=== PATIENT | male | born 1940 | race Caucasian/White ===

== ENCOUNTER → 2017-01-28 | Outpatient (CLI) | payer OTHER ==
[~2017-01-28] MED LIST: REGADENOSON 0.4 MG/5 ML SYRINGE ONE
== END | disposition home or self-care (01) ==
LOC: CFH 12:24
PROVIDERS: ATTEND Internal Medicine Cardiovascular Disease
DX: I08.2 Rheumatic disorders of both aortic and tricuspid valves (principal); I37.1 Nonrheumatic pulmonary valve insufficiency; I51.89 Other ill-defined heart diseases; I65.23 Occlusion and stenosis of bilateral carotid arteries; I25.2 Old myocardial infarction
CPT/HCPCS: 78452; 93017; 93306; 93880; A9502; J2785

== ENCOUNTER 2017-11-27 17:21 | Inpatient (IN) | payer OTHER ==
[~2017-11-27] VITALS: Ht 182.9 cm; Wt 72.3 kg
[2017-11-27] MEDS ORDERED: SODIUM CHLORIDE 0.9% 1,000 ML IV ONE (17:28)
[2017-11-27] MEDS ORDERED: SODIUM CHLORIDE FLUSH 10ML SYR IVF ONE ×2 (17:30→20:00)
[2017-11-27] MEDS ORDERED: ASPIRIN 81 MG TABLET CHEW PO ONE (17:30)
[2017-11-27] MEDS ORDERED: ASPIRIN 81 MG TABLET CHEW ONE (17:40)
[2017-11-27 18:42] LABS: BASOPHILS # (AUTO) 0.02 x10^3/uL (0-0.1); BASOPHILS % (AUTO) 0 % (0-1); EOSINOPHILS # (AUTO) 0.14 x10^3/uL (0-0.4); EOSINOPHILS % (AUTO) 2 % (1-7); LYMPHOCYTES % (AUTO) 19 % (22-44); MD NO; MEAN CORPUSCULAR HEMOGLOBIN 30.7 pg (27.5-34.5); MEAN CORPUSCULAR HGB CONC 32.4 g/dL (33.2-36.2); MEAN CORPUSCULAR VOLUME 94.8 fL (81-97); MEAN PLATELET VOLUME 8.5 fL (7.4-10.4); MONOCYTES # (AUTO) 0.57 x10^3/uL (0.2-0.8); MONOCYTES % (AUTO) 9 % (2-9); NEUTROPHILS # (AUTO) 4.71 x10^3/uL (1.8-6.8); NEUTROPHILS % (AUTO) 70 % (42-75); PLATELET COUNT 180 x10^3/uL (130-400); RED BLOOD COUNT 4.68 x10^6/uL (4.38-5.82); RED CELL DISTRIBUTION WIDTH 15.7 % (9.4-14.8)
[2017-11-27] MEDS ORDERED: OMNIPAQUE 350 MG/ML, 100ML BOTTLE ONE (18:45)
[2017-11-27 18:52] LABS: INTERNATIONAL NORMALIZED RATIO 1.18 (0.93-1.1); PROTHROMBIN TIME 12.2 Seconds (9.6-11.5)
[2017-11-27] MEDS ORDERED: LEVO25TA4 PO (18:53)
[2017-11-27] MEDS ORDERED: LISI-170 PO (18:53)
[2017-11-27] MEDS ORDERED: TIOT18CA INH (18:53)
[2017-11-27] MEDS ORDERED: ATOR10TA9 PO (18:53)
[2017-11-27 18:54] LABS: ALANINE AMINOTRANSFERASE 61 U/L (12-78); ANION GAP 5 mmol/L (5-15); CALCIUM 8.2 mg/dL (8.5-10.1); CHLORIDE 106 mmol/L (98-107); CREATININE 1.39 mg/dL (0.7-1.3)
[2017-11-27 18:59] LABS: ALKALINE PHOSPHATASE 106 U/L (45-117); BILIRUBIN,TOTAL 0.5 mg/dL (0.2-1.0); TOTAL PROTEIN 6.5 g/dL (6.4-8.2); TROPONIN I 0.027 ng/mL (0.000-0.045)
[2017-11-27] MEDS ORDERED: SODIUM CHLORIDE 0.9%, 500ML IVBOLUS ONE ×2 (19:00→20:00)
[2017-11-27] MEDS ORDERED: PIPERACILLIN/TAZO/PMX 3.375GM 50 ML ONE (19:50)
[2017-11-27] MEDS ORDERED: VANCOMYCIN PER PHARMACY MC PRN (20:00)
[2017-11-27] MEDS ORDERED: PIPERACILLIN/TAZO/PMX 3.375GM 50 ML IV ONE (20:00)
[2017-11-27] MEDS ORDERED: PHARMACOKINETIC CONSULTATION MC ONE (20:00)
[2017-11-27] MEDS ORDERED: VANCOMYCIN 1,400 MG in SODIUM CHLORIDE 0.9% 250 ML IV ONE (20:15)
[2017-11-27 20:57] VITALS: BP 120/77
[2017-11-27] MEDS ORDERED: ONDANSETRON 2MG/ML, 2ML IVPush PRN (22:30)
[2017-11-27] MEDS ORDERED: OXYcodone IR 5MG TABLET PO PRN (22:30)
[2017-11-27] MEDS ORDERED: FUROSEMIDE 20 MG/2 ML IV ONE (22:30)
[2017-11-27] MEDS ORDERED: ALBUTEROL/IPRATROPIUM 2.5MG/0.5MG, 3 ML NPPB SCH (22:30)
[2017-11-27] MEDS ORDERED: hydrALAzine 20 MG/ML, 1ML IVPush PRN (22:30)
[2017-11-27] MEDS ORDERED: POLYETHYLENE GLYCOL 17 GM PACKET PO PRN (22:30)
[2017-11-27] MEDS ORDERED: BISACODYL 10 MG SUPP PR PRN (22:30)
[2017-11-27] MEDS ORDERED: LABETALOL 5MG/ML, 20ML IVPush PRN (22:30)
[2017-11-27] MEDS ORDERED: morphine SULFATE 10 MG/ML, 1ML IVPush PRN (22:30)
[2017-11-27] MEDS ORDERED: ACETAMINOPHEN 325 MG TABLET PO PRN (22:30)
[2017-11-27] MEDS ORDERED: ALBUTEROL/IPRATROPIUM 2.5MG/0.5MG, 3 ML NPPB PRN (23:00)
[2017-11-27] MEDS: methylPREDNISolone SOD SUCC 125 MG/2 ML IVPush SCH (23:20)
[2017-11-27] MEDS: ATORVASTATIN 10 MG TABLET PO SCH (23:20)
[2017-11-27] MEDS: DOXYCYCLINE 100MG TABLET PO SCH (23:21)
[2017-11-27] MEDS: CEFTRIAXONE PMX 2GM/50ML 50 ML IV SCH (23:21)
[2017-11-27] MEDS: NICOTINE 14MG/24 HR PATCH.TD24 TD SCH (23:22)
[2017-11-27 23:27] LABS: FREE T4 (FREE THYROXINE) 0.93 ng/dL (0.76-1.46); THYROID STIMULATING HORMONE 4.88 mIU/L (0.358-3.740)
[2017-11-27] MEDS: HEPARIN 5,000 UNITS/ML, 1ML SQ SCH (23:33)
[2017-11-27 23:41] LABS: HEMOGLOBIN A1C 6.3 % (4.2-6.3)
[2017-11-28 01:58] LABS: MICROSCOPIC NOT IND
[2017-11-28 02:04] LABS: CULTURE INDICATED? NO
[2017-11-28 02:05] VITALS: BP 126/73
[2017-11-28 05:21] LABS: CHLORIDE 107 mmol/L (98-107)
[2017-11-28] MEDS: methylPREDNISolone SOD SUCC 125 MG/2 ML IVPush SCH ×4 (05:23→22:43)
[2017-11-28 05:26] LABS: ALANINE AMINOTRANSFERASE 49 U/L (12-78); ALBUMIN 2.5 g/dL (3.4-5.0); ALKALINE PHOSPHATASE 90 U/L (45-117); ANION GAP 8 mmol/L (5-15); BILIRUBIN,TOTAL 0.3 mg/dL (0.2-1.0); CALCIUM 7.9 mg/dL (8.5-10.1); CREATININE 1.37 mg/dL (0.7-1.3); TOTAL PROTEIN 5.6 g/dL (6.4-8.2); TRIGLYCERIDES 42 mg/dL (50-200)
[2017-11-28 05:27] LABS: CHOL/HDL RATIO 2.7; CHOLESTEROL, TOTAL 96 mg/dL (140-239); HDL CHOL % 36 % (26-37); HDL CHOLESTEROL (DIRECT) 35 mg/dL (40-60); LDL CHOLESTEROL,CALCULATED 53 mg/dL (54-169); LDL/HDL RATIO 1.5 (0.5-3.0); VLDL CHOLESTEROL 8 mg/dL (0-25)
[2017-11-28 05:28] LABS: BASOPHILS # (AUTO) 0.01 x10^3/uL (0-0.1); BASOPHILS % (AUTO) 0 % (0-1); EOSINOPHILS # (AUTO) 0.02 x10^3/uL (0-0.4); EOSINOPHILS % (AUTO) 1 % (1-7); LYMPHOCYTES # (AUTO) 0.54 x10^3/uL (1-3.4); LYMPHOCYTES % (AUTO) 13 % (22-44); MD NO; MEAN CORPUSCULAR HEMOGLOBIN 30.9 pg (27.5-34.5); MEAN CORPUSCULAR HGB CONC 32.9 g/dL (33.2-36.2); MEAN CORPUSCULAR VOLUME 93.9 fL (81-97); MEAN PLATELET VOLUME 8.2 fL (7.4-10.4); MONOCYTES # (AUTO) 0.07 x10^3/uL (0.2-0.8); MONOCYTES % (AUTO) 2 % (2-9); NEUTROPHILS # (AUTO) 3.42 x10^3/uL (1.8-6.8); NEUTROPHILS % (AUTO) 84 % (42-75); PLATELET COUNT 152 x10^3/uL (130-400); RED BLOOD COUNT 4.03 x10^6/uL (4.38-5.82); RED CELL DISTRIBUTION WIDTH 15.6 % (9.4-14.8)
[2017-11-28] MEDS: HEPARIN 5,000 UNITS/ML, 1ML SQ SCH ×3 (05:53→22:43)
[2017-11-28] MEDS ORDERED: IPRATROPIUM 0.5 MG/2.5 ML INHA NPPB SCH (09:00)
[2017-11-28] MEDS ORDERED: LEVOTHYROXINE 25 MCG TABLET PO SCH (09:00)
[2017-11-28] MEDS ORDERED: IPRATROPIUM 0.5 MG/2.5 ML INHA HHN SCH (09:00)
[2017-11-28] MEDS: DOXYCYCLINE 100MG TABLET PO SCH ×2 (09:01→21:08)
[2017-11-28] MEDS: FLUTICASONE/VILANTEROL 200-25MCG/INH INH SCH (09:02)
[2017-11-28] MEDS: SENNA/DOCUSATE TABLET PO SCH (09:02)
[2017-11-28] MEDS: FUROSEMIDE 20 MG/2 ML IV SCH (09:02)
[2017-11-28 09:36] VITALS: BP 126/90
[2017-11-28] MEDS ORDERED: MAGNESIUM SULFATE PMX 2GM/50ML 50 ML IV ONE (11:00)
[2017-11-28 12:27] VITALS: BP 127/87
[2017-11-28 18:35] VITALS: BP 125/90
[2017-11-28] MEDS: IPRATROPIUM 0.5 MG/2.5 ML INHA NPPB SCH (21:00)
[2017-11-28] MEDS: MAGNESIUM CHLORIDE 64 MG TABLET.DR PO SCH (21:08)
[2017-11-28] MEDS: ATORVASTATIN 10 MG TABLET PO SCH (21:08)
[2017-11-28] MEDS: NICOTINE 14MG/24 HR PATCH.TD24 TD SCH (22:43)
[2017-11-28] MEDS: CEFTRIAXONE PMX 2GM/50ML 50 ML IV SCH (22:43)
[2017-11-29 01:40] VITALS: BP 132/85
[2017-11-29 05:40] LABS: CHLORIDE 104 mmol/L (98-107)
[2017-11-29] MEDS: LEVOTHYROXINE 25 MCG TABLET PO SCH (05:44)
[2017-11-29] MEDS: methylPREDNISolone SOD SUCC 125 MG/2 ML IVPush SCH ×2 (05:44→10:09)
[2017-11-29] MEDS: HEPARIN 5,000 UNITS/ML, 1ML SQ SCH ×3 (05:44→23:16)
[2017-11-29 05:45] LABS: ANION GAP 8 mmol/L (5-15); CALCIUM 8.1 mg/dL (8.5-10.1); CREATININE 1.48 mg/dL (0.7-1.3)
[2017-11-29 07:50] VITALS: BP 130/78
[2017-11-29] MEDS: IPRATROPIUM 0.5 MG/2.5 ML INHA NPPB SCH ×2 (09:00→19:55)
[2017-11-29] MEDS: DOXYCYCLINE 100MG TABLET PO SCH ×2 (09:18→20:21)
[2017-11-29] MEDS: MAGNESIUM CHLORIDE 64 MG TABLET.DR PO SCH ×2 (09:18→20:21)
[2017-11-29] MEDS: FUROSEMIDE 20 MG/2 ML IV SCH ×2 (09:18→20:21)
[2017-11-29] MEDS: FLUTICASONE/VILANTEROL 200-25MCG/INH INH SCH (09:18)
[2017-11-29] MEDS: SENNA/DOCUSATE TABLET PO SCH (09:18)
[2017-11-29] MEDS ORDERED: GUAIFENESIN/DM 100-10MG, 5ML UDC PO PRN (11:30)
[2017-11-29] MEDS: ALBUMIN HUMAN 25% 100 ML IV SCH ×2 (12:01→18:00)
[2017-11-29] MEDS: LISINOPRIL 5 MG TABLET PO SCH (12:01)
[2017-11-29 14:32] VITALS: BP 114/79
[2017-11-29 19:25] VITALS: BP 113/64
[2017-11-29] MEDS: ATORVASTATIN 10 MG TABLET PO SCH (20:21)
[2017-11-29] MEDS: CEFTRIAXONE 2 GM in SODIUM CHLORIDE 0.9% 50 ML IV SCH (23:17)
[2017-11-29] MEDS: NICOTINE 14MG/24 HR PATCH.TD24 TD SCH (23:17)
[2017-11-30] MEDS: ALBUMIN HUMAN 25% 100 ML IV SCH ×4 (00:11→17:04)
[2017-11-30 02:10] VITALS: BP 109/64
[2017-11-30] MEDS: LEVOTHYROXINE 25 MCG TABLET PO SCH (04:25)
[2017-11-30 05:28] LABS: ANION GAP 7 mmol/L (5-15); CALCIUM 8.4 mg/dL (8.5-10.1); CHLORIDE 100 mmol/L (98-107)
[2017-11-30 05:29] LABS: CREATININE 1.59 mg/dL (0.7-1.3)
[2017-11-30 05:37] LABS: TROPONIN I 0.031 ng/mL (0.000-0.045)
[2017-11-30] MEDS: HEPARIN 5,000 UNITS/ML, 1ML SQ SCH ×3 (06:00→21:17)
[2017-11-30 07:25] VITALS: BP 141/85
[2017-11-30] MEDS ORDERED: REGADENOSON 0.4 MG/5 ML SYRINGE ONE (08:30)
[2017-11-30] MEDS: DOXYCYCLINE 100MG TABLET PO SCH ×2 (11:45→21:17)
[2017-11-30] MEDS: SENNA/DOCUSATE TABLET PO SCH (11:45)
[2017-11-30] MEDS: FLUTICASONE/VILANTEROL 200-25MCG/INH INH SCH (11:45)
[2017-11-30] MEDS: FUROSEMIDE 20 MG/2 ML IV SCH (11:46)
[2017-11-30] MEDS: LISINOPRIL 5 MG TABLET PO SCH (11:46)
[2017-11-30 12:49] VITALS: BP 124/76
[2017-11-30] MEDS: IPRATROPIUM 0.5 MG/2.5 ML INHA NPPB SCH ×2 (13:20→19:35)
[2017-11-30 19:05] VITALS: BP 128/67
[2017-11-30] MEDS: ATORVASTATIN 10 MG TABLET PO SCH (21:17)
[2017-11-30] MEDS: CEFTRIAXONE 2 GM in SODIUM CHLORIDE 0.9% 50 ML IV SCH (21:17)
[2017-11-30] MEDS: NICOTINE 14MG/24 HR PATCH.TD24 TD SCH (21:44)
[2017-12-01 01:20] VITALS: BP 144/94
[2017-12-01] MEDS: LEVOTHYROXINE 25 MCG TABLET PO SCH (06:00)
[2017-12-01] MEDS: HEPARIN 5,000 UNITS/ML, 1ML SQ SCH ×2 (06:30→14:14)
[2017-12-01 08:05] VITALS: BP 141/83
[2017-12-01] MEDS ORDERED: FUROSEMIDE 40 MG TABLET PO SCH (09:00)
[2017-12-01] MEDS: SENNA/DOCUSATE TABLET PO SCH (09:00)
[2017-12-01] MEDS: FLUTICASONE/VILANTEROL 200-25MCG/INH INH SCH (10:23)
[2017-12-01] MEDS: LISINOPRIL 5 MG TABLET PO SCH (10:23)
[2017-12-01] MEDS: DOXYCYCLINE 100MG TABLET PO SCH (10:24)
[2017-12-01 13:50] VITALS: BP 130/78
[2017-12-01] MEDS ORDERED: DOXY100T PO (14:59)
[2017-12-01] MEDS ORDERED: CEFD300C37 PO (14:59)
[2017-12-01] MEDS ORDERED: FLUT1BLS INH (14:59)
[2017-12-01] MEDS ORDERED: FURO40TA6 PO (14:59)
[2017-12-01] MEDS ORDERED: CARV3.1212 PO (14:59)
[2017-12-01] MEDS ORDERED: IPRA3AMP NPPB (14:59)
[2017-12-01] MEDS ORDERED: LISI5TAB7 PO (14:59)
== END 2017-12-01 18:15 | disposition home or self-care (01) | DRG 871 ==
LOC: ED 19:58 → EDIP 20:40 → 4WST 20:45
PROVIDERS: ADMIT Internal Medicine; ATTEND Internal Medicine
DX: A41.9 Sepsis, unspecified organism (principal); J18.9 Pneumonia, unspecified organism; J96.21 Acute and chronic respiratory failure with hypoxia; E43 Unspecified severe protein-calorie malnutrition; I50.43 Acute on chronic combined systolic (congestive) and diastolic (congestive) heart failure; N17.0 Acute kidney failure with tubular necrosis; I11.0 Hypertensive heart disease with heart failure; I35.1 Nonrheumatic aortic (valve) insufficiency; Z99.81 Dependence on supplemental oxygen; J44.1 Chronic obstructive pulmonary disease with (acute) exacerbation; J44.0 Chronic obstructive pulmonary disease with (acute) lower respiratory infection; I45.10 Unspecified right bundle-branch block; E03.9 Hypothyroidism, unspecified; E78.5 Hyperlipidemia, unspecified; I25.10 Atherosclerotic heart disease of native coronary artery without angina pectoris; F17.210 Nicotine dependence, cigarettes, uncomplicated; I77.819 Aortic ectasia, unspecified site; Z79.82 Long term (current) use of aspirin; Z85.47 Personal history of malignant neoplasm of testis; Z87.442 Personal history of urinary calculi; Z95.1 Presence of aortocoronary bypass graft; Z68.21 Body mass index [BMI] 21.0-21.9, adult; Z71.6 Tobacco abuse counseling
CPT/HCPCS: 36415; 71045; 71275; 78452; 80048; 80053; 80061; 81003; 83036; 83605; 83735; 83880; 84439; 84443; 84484; 85025; 85610; 85730; 87040; 87070; 87205; 93005; 93017; 93306; 94640; J0696; J1644; J2543; J2785; J3370; J7620; J7644; P9047; Q9967; A9502; C9898; J1940; J2930; J3475; J7040; J7050; J7512

== ENCOUNTER → 2018-06-16 | Outpatient (CLI) | payer OTHER ==
[~2018-06-16] MED LIST changes: +ATOR10TA9 PO; +CARV3.1212 PO; +CEFD300C37 PO; +DOXY100T PO; +FLUT1BLS INH; +FURO40TA6 PO; +IPRA3AMP30 NPPB; +LEVO25TA4 PO; +LISI-170 PO; +LISI5TAB7 PO; -REGADENOSON 0.4 MG/5 ML SYRINGE ONE; +TIOT18CA INH
== END | disposition home or self-care (01) ==
LOC: CFH 11:43
PROVIDERS: ATTEND Internal Medicine
DX: J43.9 Emphysema, unspecified (principal); I71.4 Abdominal aortic aneurysm, without rupture; J94.1 Fibrothorax; J98.4 Other disorders of lung
CPT/HCPCS: 71250

== ENCOUNTER → 2018-06-16 | Outpatient (CLI) | payer OTHER | END | disposition home or self-care (01) | LOC: WOUND 10:17 | PROVIDERS: ATTEND Internal Medicine | DX: I87.312 Chronic venous hypertension (idiopathic) with ulcer of left lower extremity (principal); L97.222 Non-pressure chronic ulcer of left calf with fat layer exposed; E03.9 Hypothyroidism, unspecified; R73.01 Impaired fasting glucose; I25.10 Atherosclerotic heart disease of native coronary artery without angina pectoris; I11.0 Hypertensive heart disease with heart failure; I50.43 Acute on chronic combined systolic (congestive) and diastolic (congestive) heart failure; J44.0 Chronic obstructive pulmonary disease with (acute) lower respiratory infection; J44.1 Chronic obstructive pulmonary disease with (acute) exacerbation; E78.5 Hyperlipidemia, unspecified; F17.210 Nicotine dependence, cigarettes, uncomplicated; Z95.1 Presence of aortocoronary bypass graft; Z85.47 Personal history of malignant neoplasm of testis; Z79.82 Long term (current) use of aspirin | CPT/HCPCS: 97597; 97598; 99205 ==

== ENCOUNTER → 2018-06-23 | Outpatient (CLI) | payer OTHER | END | disposition home or self-care (01) | LOC: WOUND 13:54 | PROVIDERS: ATTEND Internal Medicine | DX: I87.312 Chronic venous hypertension (idiopathic) with ulcer of left lower extremity (principal); L97.222 Non-pressure chronic ulcer of left calf with fat layer exposed; E03.9 Hypothyroidism, unspecified; R73.01 Impaired fasting glucose; I25.10 Atherosclerotic heart disease of native coronary artery without angina pectoris; I11.0 Hypertensive heart disease with heart failure; I50.43 Acute on chronic combined systolic (congestive) and diastolic (congestive) heart failure; E78.5 Hyperlipidemia, unspecified; J43.9 Emphysema, unspecified; F17.210 Nicotine dependence, cigarettes, uncomplicated; Z95.1 Presence of aortocoronary bypass graft; Z85.47 Personal history of malignant neoplasm of testis; Z79.82 Long term (current) use of aspirin | CPT/HCPCS: 97597 ==

== ENCOUNTER → 2018-06-30 | Outpatient (CLI) | payer OTHER | END | disposition home or self-care (01) | LOC: WOUND 10:51 | PROVIDERS: ATTEND Internal Medicine | DX: I87.312 Chronic venous hypertension (idiopathic) with ulcer of left lower extremity (principal); L97.828 Non-pressure chronic ulcer of other part of left lower leg with other specified severity; I11.0 Hypertensive heart disease with heart failure; I50.43 Acute on chronic combined systolic (congestive) and diastolic (congestive) heart failure; F17.210 Nicotine dependence, cigarettes, uncomplicated; E03.9 Hypothyroidism, unspecified; J43.9 Emphysema, unspecified; E78.5 Hyperlipidemia, unspecified; R73.01 Impaired fasting glucose; I25.10 Atherosclerotic heart disease of native coronary artery without angina pectoris; Z85.47 Personal history of malignant neoplasm of testis | CPT/HCPCS: 99214 ==

== ENCOUNTER → 2018-07-09 | Outpatient (CLI) | payer OTHER | END | disposition home or self-care (01) | LOC: CVU 13:15 | PROVIDERS: ATTEND Internal Medicine | DX: I87.2 Venous insufficiency (chronic) (peripheral) (principal); I70.203 Unspecified atherosclerosis of native arteries of extremities, bilateral legs; I10 Essential (primary) hypertension; J44.9 Chronic obstructive pulmonary disease, unspecified; I25.810 Atherosclerosis of coronary artery bypass graft(s) without angina pectoris; L97.229 Non-pressure chronic ulcer of left calf with unspecified severity; F17.200 Nicotine dependence, unspecified, uncomplicated | CPT/HCPCS: 93922; 93925; 93970 ==

== ENCOUNTER → 2018-07-15 | Outpatient (CLI) | payer OTHER | END | disposition home or self-care (01) | LOC: WOUND 13:00 | PROVIDERS: ATTEND Internal Medicine | DX: I87.312 Chronic venous hypertension (idiopathic) with ulcer of left lower extremity (principal); L97.222 Non-pressure chronic ulcer of left calf with fat layer exposed; E03.9 Hypothyroidism, unspecified; R73.01 Impaired fasting glucose; I11.0 Hypertensive heart disease with heart failure; I50.43 Acute on chronic combined systolic (congestive) and diastolic (congestive) heart failure; E78.5 Hyperlipidemia, unspecified; I25.10 Atherosclerotic heart disease of native coronary artery without angina pectoris; J43.9 Emphysema, unspecified; F17.210 Nicotine dependence, cigarettes, uncomplicated; Z95.1 Presence of aortocoronary bypass graft; Z85.47 Personal history of malignant neoplasm of testis; Z79.82 Long term (current) use of aspirin | CPT/HCPCS: 99212 ==

== ENCOUNTER 2018-08-20 16:50 | Inpatient (IN) | payer OTHER ==
[~2018-08-20] VITALS: Ht 182.9 cm; Wt 64.3 kg
[2018-08-20 17:53] LABS: BASOPHILS # (AUTO) 0.03 x10^3/uL (0-0.1); BASOPHILS % (AUTO) 0 % (0-1); EOSINOPHILS # (AUTO) 0.05 x10^3/uL (0-0.4); EOSINOPHILS % (AUTO) 1 % (1-7); LYMPHOCYTES # (AUTO) 1.18 x10^3/uL (1-3.4); LYMPHOCYTES % (AUTO) 10 % (22-44); MD NO; MEAN CORPUSCULAR HEMOGLOBIN 28.5 pg (27.5-34.5); MEAN CORPUSCULAR HGB CONC 32.6 g/dL (33.2-36.2); MEAN CORPUSCULAR VOLUME 87.6 fL (81-97); MEAN PLATELET VOLUME 7.8 fL (7.4-10.4); MONOCYTES # (AUTO) 0.52 x10^3/uL (0.2-0.8); MONOCYTES % (AUTO) 5 % (2-9); NEUTROPHILS # (AUTO) 9.67 x10^3/uL (1.8-6.8); NEUTROPHILS % (AUTO) 84 % (42-75); PLATELET COUNT 251 x10^3/uL (130-400); RED BLOOD COUNT 4.01 x10^6/uL (4.38-5.82); RED CELL DISTRIBUTION WIDTH 17.7 % (9.4-14.8)
[2018-08-20 17:55] LABS: INTERNATIONAL NORMALIZED RATIO 1.3 (0.93-1.1); PROTHROMBIN TIME 13.3 Seconds (9.6-11.5)
[2018-08-20 17:57] LABS: ALBUMIN 1.7 g/dL (3.4-5.0); ANION GAP 7 mmol/L (5-15); CALCIUM 7.5 mg/dL (8.5-10.1); CHLORIDE 100 mmol/L (98-107)
[2018-08-20 18:03] LABS: ALANINE AMINOTRANSFERASE 20 U/L (12-78); ALKALINE PHOSPHATASE 136 U/L (45-117); BILIRUBIN,TOTAL 0.5 mg/dL (0.2-1.0); CREATININE 1.17 mg/dL (0.7-1.3); TROPONIN I 0.022 ng/mL (0.000-0.045)
[2018-08-20] MEDS ORDERED: HEPARIN 5,000 UNITS/ML, 1ML ONE (18:49)
[2018-08-20] MEDS ORDERED: HEPARIN 25,000 UNITS/500ML PMX 500 ML ONE (18:49)
[2018-08-20] MEDS ORDERED: HEPARIN 5,000 UNITS/ML, 1ML IV ONE (19:00)
[2018-08-20] MEDS: AZITHROMYCIN 500 MG in SODIUM CHLORIDE 0.9% 250 ML IV SCH (19:00)
[2018-08-20] MEDS ORDERED: HEPARIN 25,000 UNITS/500ML PMX 500 ML IV PRN (19:00)
[2018-08-20] MEDS ORDERED: POLYETHYLENE GLYCOL 17 GM PACKET PO PRN (19:00)
[2018-08-20] MEDS: CEFTRIAXONE 1,000 MG in SODIUM CHLORIDE 0.9% 50 ML IV SCH ×2 (19:00→20:47)
[2018-08-20] MEDS ORDERED: ONDANSETRON ODT 4 MG PO PRN (19:00)
[2018-08-20] MEDS ORDERED: BISACODYL 10 MG SUPP PR PRN (19:00)
[2018-08-20] MEDS ORDERED: ACETAMINOPHEN 325 MG TABLET PO PRN (19:00)
[2018-08-20 19:44] LABS: FREE T4 (FREE THYROXINE) 0.93 ng/dL (0.76-1.46)
[2018-08-20 20:20] VITALS: BP 101/70
[2018-08-20 20:45] VITALS: BP 101/52
[2018-08-20] MEDS: NICOTINE 21 MG/24 HR PATCH.TD24 TD SCH (20:45)
[2018-08-20] MEDS: SODIUM CHLORIDE FLUSH 10ML SYR IVF SCH (20:46)
[2018-08-20] MEDS: CARVEDILOL 6.25 MG TABLET PO SCH ×2 (20:47→22:35)
[2018-08-20] MEDS: POTASSIUM CHLORIDE 20 MEQ TAB.ER.PRT PO SCH (20:47)
[2018-08-20] MEDS: ATORVASTATIN 10 MG TABLET PO SCH (20:47)
[2018-08-20] MEDS: FUROSEMIDE 20 MG/2 ML IV SCH (20:47)
[2018-08-20] MEDS ORDERED: ALBUTEROL/IPRATROPIUM 2.5MG/0.5MG, 3 ML ONE (21:20)
[2018-08-20] MEDS ORDERED: ALBUTEROL/IPRATROPIUM 2.5MG/0.5MG, 3 ML NPPB PRN (22:00)
[2018-08-20 22:25] VITALS: BP 103/69
[2018-08-21] VITALS (7 sets, daily range): BP systolic 91–102; BP diastolic 57–70
[2018-08-21 01:11] LABS: TROPONIN I 0.026 ng/mL (0.000-0.045)
[2018-08-21] MEDS: HEPARIN 5,000 UNITS/ML, 1ML IV PRN ×3 (01:36→16:09)
[2018-08-21] MEDS: CARVEDILOL 6.25 MG TABLET PO SCH (06:00)
[2018-08-21] MEDS: LEVOTHYROXINE 25 MCG TABLET PO SCH (06:03)
[2018-08-21] MEDS: ALBUTEROL/IPRATROPIUM 2.5MG/0.5MG, 3 ML NPPB SCH ×3 (07:37→19:00)
[2018-08-21 07:50] LABS: ALBUMIN 1.5 g/dL (3.4-5.0); ANION GAP 4 mmol/L (5-15); CALCIUM 7.3 mg/dL (8.5-10.1); CHLORIDE 100 mmol/L (98-107)
[2018-08-21 07:56] LABS: ALANINE AMINOTRANSFERASE 16 U/L (12-78); ALKALINE PHOSPHATASE 109 U/L (45-117); BILIRUBIN,TOTAL 0.5 mg/dL (0.2-1.0); TOTAL PROTEIN 6.4 g/dL (6.4-8.2)
[2018-08-21 07:57] LABS: BASOPHILS # (AUTO) 0.04 x10^3/uL (0-0.1); BASOPHILS % (AUTO) 1 % (0-1); EOSINOPHILS # (AUTO) 0.09 x10^3/uL (0-0.4); EOSINOPHILS % (AUTO) 1 % (1-7); LYMPHOCYTES % (AUTO) 12 % (22-44); MD NO; MEAN CORPUSCULAR HEMOGLOBIN 28.5 pg (27.5-34.5); MEAN CORPUSCULAR HGB CONC 32.7 g/dL (33.2-36.2); MEAN CORPUSCULAR VOLUME 87.3 fL (81-97); MEAN PLATELET VOLUME 7.7 fL (7.4-10.4); MONOCYTES # (AUTO) 0.43 x10^3/uL (0.2-0.8); MONOCYTES % (AUTO) 5 % (2-9); NEUTROPHILS # (AUTO) 7.27 x10^3/uL (1.8-6.8); NEUTROPHILS % (AUTO) 81 % (42-75); PLATELET COUNT 218 x10^3/uL (130-400); RED BLOOD COUNT 3.86 x10^6/uL (4.38-5.82)
[2018-08-21] MEDS: POTASSIUM CHLORIDE 20 MEQ TAB.ER.PRT PO SCH ×2 (08:17→18:08)
[2018-08-21] MEDS: FUROSEMIDE 20 MG/2 ML IV SCH ×2 (08:17→16:43)
[2018-08-21] MEDS: SENNA/DOCUSATE TABLET PO SCH (08:17)
[2018-08-21] MEDS: SODIUM CHLORIDE FLUSH 10ML SYR IVF SCH ×2 (08:18→20:28)
[2018-08-21] MEDS ORDERED: LISINOPRIL 20 MG TABLET PO SCH (09:00)
[2018-08-21] MEDS ORDERED: IPRATROPIUM 0.5 MG/2.5 ML INHA NPPB SCH (09:00)
[2018-08-21] MEDS: FLUTICASONE/VILANTEROL 200-25MCG/INH INH SCH (12:28)
[2018-08-21] MEDS ORDERED: CARVEDILOL 3.125 MG TABLET PO ONE (13:00)
[2018-08-21] MEDS ORDERED: DIGOXIN 0.25 MG/ML, 2ML IVPush ONE (16:30)
[2018-08-21] MEDS: ENOXAPARIN 60 MG/0.6 ML SQ SCH (16:39)
[2018-08-21] MEDS: NICOTINE 21 MG/24 HR PATCH.TD24 TD SCH (19:14)
[2018-08-21] MEDS: CEFTRIAXONE 1,000 MG in SODIUM CHLORIDE 0.9% 50 ML IV SCH (19:14)
[2018-08-21 19:43] LABS: ANION GAP 9 mmol/L (5-15); CALCIUM 7.6 mg/dL (8.5-10.1); CHLORIDE 99 mmol/L (98-107); CREATININE 1.21 mg/dL (0.7-1.3)
[2018-08-21] MEDS: AZITHROMYCIN 500 MG in SODIUM CHLORIDE 0.9% 250 ML IV SCH (20:28)
[2018-08-21] MEDS: ATORVASTATIN 10 MG TABLET PO SCH (20:28)
[2018-08-21] MEDS ORDERED: DIGOXIN 0.25 MG/ML, 2ML IV ONE (23:00)
[2018-08-22] MEDS: ALBUTEROL/IPRATROPIUM 2.5MG/0.5MG, 3 ML NPPB SCH ×4 (03:00→19:40)
[2018-08-22 03:30] VITALS: BP 90/54
[2018-08-22] MEDS ORDERED: DIGOXIN 0.25 MG/ML, 2ML IV SCH (05:00)
[2018-08-22] MEDS: LEVOTHYROXINE 25 MCG TABLET PO SCH (05:13)
[2018-08-22] MEDS: ENOXAPARIN 60 MG/0.6 ML SQ SCH ×2 (05:13→17:11)
[2018-08-22 05:55] LABS: BASOPHILS # (AUTO) 0.03 x10^3/uL (0-0.1); BASOPHILS % (AUTO) 0 % (0-1); EOSINOPHILS # (AUTO) 0.12 x10^3/uL (0-0.4); EOSINOPHILS % (AUTO) 2 % (1-7); LYMPHOCYTES # (AUTO) 1.21 x10^3/uL (1-3.4); LYMPHOCYTES % (AUTO) 17 % (22-44); MD NO; MEAN CORPUSCULAR HEMOGLOBIN 29.2 pg (27.5-34.5); MEAN CORPUSCULAR HGB CONC 33.2 g/dL (33.2-36.2); MEAN CORPUSCULAR VOLUME 87.9 fL (81-97); MEAN PLATELET VOLUME 7.3 fL (7.4-10.4); MONOCYTES # (AUTO) 0.35 x10^3/uL (0.2-0.8); MONOCYTES % (AUTO) 5 % (2-9); NEUTROPHILS # (AUTO) 5.54 x10^3/uL (1.8-6.8); NEUTROPHILS % (AUTO) 77 % (42-75); PLATELET COUNT 231 x10^3/uL (130-400); RED BLOOD COUNT 3.55 x10^6/uL (4.38-5.82); RED CELL DISTRIBUTION WIDTH 17.9 % (9.4-14.8)
[2018-08-22 06:07] LABS: ALBUMIN 1.5 g/dL (3.4-5.0); ANION GAP 3 mmol/L (5-15); CALCIUM 7.8 mg/dL (8.5-10.1); CHLORIDE 102 mmol/L (98-107)
[2018-08-22 06:09] LABS: CREATININE 0.99 mg/dL (0.7-1.3)
[2018-08-22 07:18] VITALS: BP 94/57
[2018-08-22] MEDS: FUROSEMIDE 20 MG/2 ML IV SCH ×2 (07:30→17:11)
[2018-08-22] MEDS: SENNA/DOCUSATE TABLET PO SCH (09:00)
[2018-08-22] MEDS: SODIUM CHLORIDE FLUSH 10ML SYR IVF SCH ×2 (09:03→19:58)
[2018-08-22] MEDS: POTASSIUM CHLORIDE 20 MEQ TAB.ER.PRT PO SCH ×2 (09:03→17:11)
[2018-08-22] MEDS: FLUTICASONE/VILANTEROL 200-25MCG/INH INH SCH (09:03)
[2018-08-22 12:38] VITALS: BP 95/59
[2018-08-22] MEDS: PIPERACILLIN/TAZO/PMX 3.375GM 50 ML IV SCH ×2 (17:11→23:43)
[2018-08-22] MEDS: NICOTINE 21 MG/24 HR PATCH.TD24 TD SCH (18:09)
[2018-08-22] MEDS ORDERED: CEFTRIAXONE PMX 1GM/50ML 50 ML IV SCH (19:00)
[2018-08-22 19:38] VITALS: BP 95/64
[2018-08-22] MEDS: ATORVASTATIN 40 MG TABLET PO SCH (19:59)
[2018-08-23 02:43] VITALS: BP 98/68
[2018-08-23 05:04] LABS: BASOPHILS # (AUTO) 0.03 x10^3/uL (0-0.1); BASOPHILS % (AUTO) 0 % (0-1); EOSINOPHILS % (AUTO) 1 % (1-7); LYMPHOCYTES # (AUTO) 1.12 x10^3/uL (1-3.4); LYMPHOCYTES % (AUTO) 15 % (22-44); MD NO; MEAN CORPUSCULAR HEMOGLOBIN 28.7 pg (27.5-34.5); MEAN CORPUSCULAR HGB CONC 32.4 g/dL (33.2-36.2); MEAN CORPUSCULAR VOLUME 88.6 fL (81-97); MEAN PLATELET VOLUME 7.7 fL (7.4-10.4); MONOCYTES # (AUTO) 0.33 x10^3/uL (0.2-0.8); MONOCYTES % (AUTO) 5 % (2-9); NEUTROPHILS % (AUTO) 78 % (42-75); PLATELET COUNT 244 x10^3/uL (130-400); RED BLOOD COUNT 3.69 x10^6/uL (4.38-5.82); RED CELL DISTRIBUTION WIDTH 17.6 % (9.4-14.8)
[2018-08-23 05:17] LABS: CHLORIDE 100 mmol/L (98-107)
[2018-08-23] MEDS: LEVOTHYROXINE 25 MCG TABLET PO SCH (05:33)
[2018-08-23] MEDS: ENOXAPARIN 60 MG/0.6 ML SQ SCH ×2 (05:33→16:18)
[2018-08-23] MEDS: PIPERACILLIN/TAZO/PMX 3.375GM 50 ML IV SCH ×3 (05:33→21:19)
[2018-08-23 05:37] LABS: ALBUMIN 1.5 g/dL (3.4-5.0); ANION GAP 5 mmol/L (5-15); CALCIUM 7.6 mg/dL (8.5-10.1); CREATININE 1.12 mg/dL (0.7-1.3)
[2018-08-23 06:58] VITALS: BP 101/63
[2018-08-23] MEDS: SENNA/DOCUSATE TABLET PO SCH (08:04)
[2018-08-23] MEDS: LISINOPRIL 5 MG TABLET PO SCH (08:04)
[2018-08-23] MEDS: POTASSIUM CHLORIDE 20 MEQ TAB.ER.PRT PO SCH ×2 (08:05→16:18)
[2018-08-23] MEDS: FUROSEMIDE 20 MG/2 ML IV SCH ×2 (08:06→16:18)
[2018-08-23] MEDS: SODIUM CHLORIDE FLUSH 10ML SYR IVF SCH ×2 (08:07→21:19)
[2018-08-23] MEDS: FLUTICASONE/VILANTEROL 200-25MCG/INH INH SCH (08:08)
[2018-08-23] MEDS: OXYcodone IR 5MG TABLET PO PRN ×2 (08:08→21:28)
[2018-08-23] MEDS: ALBUTEROL/IPRATROPIUM 2.5MG/0.5MG, 3 ML NPPB SCH ×3 (10:43→20:49)
[2018-08-23 12:15] VITALS: BP 95/58
[2018-08-23 18:41] VITALS: BP 96/60
[2018-08-23 20:28] VITALS: BP 113/67
[2018-08-23] MEDS: ATORVASTATIN 40 MG TABLET PO SCH (21:20)
[2018-08-23] MEDS: NICOTINE 21 MG/24 HR PATCH.TD24 TD SCH (21:27)
[2018-08-24 01:59] VITALS: BP 101/66
[2018-08-24] MEDS: ALBUTEROL/IPRATROPIUM 2.5MG/0.5MG, 3 ML NPPB SCH ×4 (03:00→21:10)
[2018-08-24] MEDS: PIPERACILLIN/TAZO/PMX 3.375GM 50 ML IV SCH ×4 (03:04→22:17)
[2018-08-24] MEDS: ENOXAPARIN 60 MG/0.6 ML SQ SCH (04:59)
[2018-08-24] MEDS: LEVOTHYROXINE 25 MCG TABLET PO SCH (04:59)
[2018-08-24 07:01] VITALS: BP 100/62
[2018-08-24] MEDS: POTASSIUM CHLORIDE 20 MEQ TAB.ER.PRT PO SCH ×2 (08:57→18:00)
[2018-08-24] MEDS: LISINOPRIL 5 MG TABLET PO SCH (08:58)
[2018-08-24] MEDS: SODIUM CHLORIDE FLUSH 10ML SYR IVF SCH ×2 (08:59→22:17)
[2018-08-24] MEDS: FUROSEMIDE 20 MG/2 ML IV SCH ×2 (08:59→18:00)
[2018-08-24] MEDS: FLUTICASONE/VILANTEROL 200-25MCG/INH INH SCH (09:00)
[2018-08-24] MEDS: SENNA/DOCUSATE TABLET PO SCH (09:00)
[2018-08-24 12:31] VITALS: BP 92/55
[2018-08-24] MEDS ORDERED: APIX2.5T PO (13:00)
[2018-08-24] MEDS ORDERED: NICO-487 TD (13:00)
[2018-08-24] MEDS ORDERED: AMOX1TAB64 PO (13:00)
[2018-08-24 18:06] VITALS: BP 109/70
[2018-08-24 18:55] VITALS: BP 95/60
[2018-08-24] MEDS ORDERED: APIXABAN 2.5 MG TABLET PO SCH (21:00)
[2018-08-24] MEDS: ATORVASTATIN 40 MG TABLET PO SCH (22:17)
[2018-08-24] MEDS: OXYcodone IR 5MG TABLET PO PRN (22:17)
[2018-08-24] MEDS: NICOTINE 21 MG/24 HR PATCH.TD24 TD SCH (22:18)
[2018-08-25 02:21] VITALS: BP 98/61
[2018-08-25] MEDS: ALBUTEROL/IPRATROPIUM 2.5MG/0.5MG, 3 ML NPPB SCH ×4 (03:00→16:50)
[2018-08-25] MEDS: LEVOTHYROXINE 25 MCG TABLET PO SCH (04:43)
[2018-08-25] MEDS: OXYcodone IR 5MG TABLET PO PRN (04:43)
[2018-08-25] MEDS: PIPERACILLIN/TAZO/PMX 3.375GM 50 ML IV SCH (04:43)
[2018-08-25] MEDS ORDERED: CEFTRIAXONE 1,000 MG in SODIUM CHLORIDE 0.9% 50 ML IV SCH (07:00)
[2018-08-25 07:32] VITALS: BP 101/68
[2018-08-25] MEDS ORDERED: APIXABAN 5 MG TABLET PO SCH (09:00)
[2018-08-25] MEDS ORDERED: CEFTRIAXONE PMX 1GM/50ML 50 ML IV SCH ×2 (09:15→09:30)
[2018-08-25] MEDS: FLUTICASONE/VILANTEROL 200-25MCG/INH INH SCH (10:13)
[2018-08-25] MEDS: SODIUM CHLORIDE FLUSH 10ML SYR IVF SCH (10:14)
[2018-08-25] MEDS: FUROSEMIDE 20 MG TABLET PO SCH ×2 (10:14→17:00)
[2018-08-25] MEDS: LISINOPRIL 5 MG TABLET PO SCH (10:14)
[2018-08-25] MEDS: SENNA/DOCUSATE TABLET PO SCH (10:15)
[2018-08-25 12:39] VITALS: BP 99/65
[2018-08-25] MEDS ORDERED: APIX5TAB PO (16:59)
[2018-08-25] MEDS ORDERED: SPIR25TA PO (17:08)
[2018-08-26] MEDS ORDERED: POTASSIUM CHLORIDE 20 MEQ TAB.ER.PRT PO SCH (09:00)
== END 2018-08-25 18:19 | DRG 175 ==
LOC: ED 18:27 → EDIP 18:57 → 4WST 19:47
PROVIDERS: ADMIT Family Medicine; ATTEND Family Medicine
DX: I26.99 Other pulmonary embolism without acute cor pulmonale (principal); E43 Unspecified severe protein-calorie malnutrition; I50.23 Acute on chronic systolic (congestive) heart failure; J13 Pneumonia due to Streptococcus pneumoniae; J96.20 Acute and chronic respiratory failure, unspecified whether with hypoxia or hypercapnia; I48.92 Unspecified atrial flutter; I82.402 Acute embolism and thrombosis of unspecified deep veins of left lower extremity; D68.69 Other thrombophilia; Z68.1 Body mass index [BMI] 19.9 or less, adult; J44.0 Chronic obstructive pulmonary disease with (acute) lower respiratory infection; D64.9 Anemia, unspecified; E03.9 Hypothyroidism, unspecified; E78.5 Hyperlipidemia, unspecified; F17.200 Nicotine dependence, unspecified, uncomplicated; I25.10 Atherosclerotic heart disease of native coronary artery without angina pectoris; Z71.6 Tobacco abuse counseling; I25.2 Old myocardial infarction; W18.30XA Fall on same level, unspecified, initial encounter; Y93.89 Activity, other specified; Y92.89 Other specified places as the place of occurrence of the external cause; Y99.8 Other external cause status; Z79.01 Long term (current) use of anticoagulants; Z85.47 Personal history of malignant neoplasm of testis; Z91.14 Patient's other noncompliance with medication regimen; Z95.1 Presence of aortocoronary bypass graft; Z99.81 Dependence on supplemental oxygen; R91.8 Other nonspecific abnormal finding of lung field; I71.9 Aortic aneurysm of unspecified site, without rupture
CPT/HCPCS: 36415; 71250; 72190; 80048; 80053; 80162; 82040; 83735; 83880; 84439; 84443; 84484; 85025; 85520; 85610; 85730; 87070; 87184; 87205; 93005; 93306; 93970; 94640; 99285; G0378; J0456; J0696; J1644; J1650; J2543; J7620; Q0162; J1160; J1940; J7050